=== PATIENT | female | born 1980 | race Caucasian/White ===

== ENCOUNTER 2018-02-09 09:32 | Inpatient (IN) | payer OTHER ==
[~2018-02-09] VITALS: Ht 162.6 cm; Wt 82.6 kg
[~2018-02-09 09:32] MED LIST: BENADRYL50 MG PO; MEDROL4 MG PO
[2018-02-28] MEDS ORDERED: ZANTAC 7575 MG PO (00:20)
[2018-02-28] MEDS ORDERED: OBSTETRIX EC C1 EACH PO (00:20)
== END 2018-03-02 12:36 | DRG 775 ==
LOC: LDR 02-27 23:38 → OB/GYN 02-27 23:47 → LDR 02-28 03:53 → OB/GYN 02-28 04:53
PROC: 10E0XZZ Delivery of Products of Conception, External Approach (ICD-10-PCS; principal; 2018-02-28)
PROC: 0KQM0ZZ Repair Perineum Muscle, Open Approach (ICD-10-PCS; 2018-02-28)
PROC: 0W8NXZZ Division of Female Perineum, External Approach (ICD-10-PCS; 2018-02-28)
PROC: 10907ZC Drainage of Amniotic Fluid, Therapeutic from Products of Conception, Via Natural or Artificial Opening (ICD-10-PCS; 2018-02-28)
PROC: 4A033R1 Measurement of Arterial Saturation, Peripheral, Percutaneous Approach (ICD-10-PCS; 2018-02-28)
PROC: 4A1HXCZ Monitoring of Products of Conception, Cardiac Rate, External Approach (ICD-10-PCS; 2018-02-28)
DX: O70.1 Second degree perineal laceration during delivery (principal); Z37.0 Single live birth; Z3A.38 38 weeks gestation of pregnancy

== ENCOUNTER 2019-12-14 10:52 | Inpatient (IN) | payer OTHER ==
[~2019-12-14] VITALS: Ht 162.6 cm; Wt 83.9 kg
[~2019-12-14 10:52] MED LIST changes: +OBSTETRIX EC C1 EACH PO; +ZANTAC 7575 MG PO
== END 2020-01-13 16:38 | disposition home or self-care (01) | DRG 807 ==
LOC: OB/GYN 01-11 11:18 → LDR 01-11 11:18 → OB/GYN 01-11 15:22 → LDR 01-15 11:30
PROVIDERS: ADMIT Obstetrics & Gynecology Maternal & Fetal Medicine; ATTEND Obstetrics & Gynecology Maternal & Fetal Medicine
PROC: 10E0XZZ Delivery of Products of Conception, External Approach (ICD-10-PCS; principal; 2020-01-11)
PROC: 0HQ9XZZ Repair Perineum Skin, External Approach (ICD-10-PCS; 2020-01-11)
PROC: 4A0HXFZ Measurement of Products of Conception, Cardiac Rhythm, External Approach (ICD-10-PCS; 2020-01-11)
DX: O70.0 First degree perineal laceration during delivery (principal); Z37.0 Single live birth; O74.5 Spinal and epidural anesthesia-induced headache during labor and delivery; Z3A.39 39 weeks gestation of pregnancy

== ENCOUNTER 2022-08-03 10:26 | Inpatient (IN) | payer OTHER ==
[~2022-08-03] VITALS: Ht 162.6 cm; Wt 87.1 kg
[2022-08-06] MEDS ORDERED: LEXAPR PO (13:38)
[2022-08-08] MEDS ORDERED: ESCITALOPRAM OX10 MG (13:38)
== END 2022-08-09 11:16 | disposition home or self-care (01) | DRG 743 ==
LOC: O/R 08-08 07:18 → SURH 08-08 11:30 → OB/GYN 08-08 14:20 → SURH 08-08 15:15 → OB/GYN 08-09 11:16
PROVIDERS: ADMIT Obstetrics & Gynecology Gynecologic Oncology; ATTEND Obstetrics & Gynecology Gynecologic Oncology
PROC: 0UT74ZZ Resection of Bilateral Fallopian Tubes, Percutaneous Endoscopic Approach (ICD-10-PCS; 2022-08-08)
PROC: 0UT94ZZ Resection of Uterus, Percutaneous Endoscopic Approach (ICD-10-PCS; principal; 2022-08-08 15:15)
DX: N72 Inflammatory disease of cervix uteri (principal); Z20.822 Contact with and (suspected) exposure to COVID-19